=== PATIENT | male | born 1985 | race Two or more races ===

== ENCOUNTER 2020-10-07 12:50 | Inpatient (IN) | payer OTHER ==
[~2020-10-07] VITALS: Ht 157.5 cm; Wt 65.8 kg
--- NOTE | 2020-10-07 13:01 | NUR ---
PT TAKEN FROM TRIAGE TO ROOM 41, PLACED ON O2, EKG PERFORMED IN ROOM.
--- NOTE | 2020-10-07 13:20 | NUR ---
PT IN GOWN IN [facility]. PT ATTACHED TO ALL VS AND CARDIAC MONITORS. DR ROE AT FOR PT HISTORY AND ASSESSMENT. PT AND SPOUSE EDUCATED ON ER PROCESS AND POC AND VERBALIZE UNDERSTANDING. CALL LIGHT IS WITHIN REACH.
[2020-10-07] MEDS ORDERED: DEXAMETHASONE 4 MG/ML, 5ML ONE (13:22)
[2020-10-07] MEDS ORDERED: DOXYCYCLINE 100MG TABLET ONE (13:22)
[2020-10-07] MEDS ORDERED: CEFTRIAXONE 1,000 MG in DEXTROSE 5% 50 ML IVPB ONE (13:30)
[2020-10-07] MEDS ORDERED: DEXAMETHASONE 4 MG/ML, 1ML IV ONE (13:30)
[2020-10-07] MEDS ORDERED: DOXYCYCLINE 100MG TABLET PO ONE (13:30)
--- NOTE | 2020-10-07 13:31 | NUR ---
SARA AT BS.
--- NOTE | 2020-10-07 13:43 | NUR ---
PIV ACCESS ESTABLISHED. LABS AND BC X 1 COLLECTED AT THIS TIME. PT MEDICATED PER MAR.
[2020-10-07 14:11] LABS: BASOPHILS % (AUTO) 0 % (0-1); EOSINOPHILS % (AUTO) 0 % (1-7); LYMPHOCYTES % (AUTO) 23 % (22-44); MEAN CORPUSCULAR HEMOGLOBIN 30.6 pg (27.5-34.5); MEAN PLATELET VOLUME 7.9 fL (7.4-10.4); MONOCYTES % (AUTO) 8 % (2-9); NEUTROPHILS % (AUTO) 68 % (42-75); PLATELET COUNT 401 x10^3/uL (130-400); RED BLOOD COUNT 5.22 x10^6/uL (4.38-5.82); RED CELL DISTRIBUTION WIDTH 13.8 % (9.4-14.8)
[2020-10-07 14:21] LABS: ALANINE AMINOTRANSFERASE 136 U/L (12-78); ALBUMIN 2.6 g/dL (3.4-5.0); ANION GAP 6 mmol/L (5-15); CALCIUM 8.5 mg/dL (8.5-10.1); CHLORIDE 104 mmol/L (98-107); CREATININE 0.78 mg/dL (0.7-1.3)
[2020-10-07 14:27] LABS: ALKALINE PHOSPHATASE 108 U/L (45-117); BILIRUBIN,TOTAL 0.5 mg/dL (0.2-1.0); TOTAL PROTEIN 7.1 g/dL (6.4-8.2)
[2020-10-07 14:33] LABS: D-DIMER (DIC) 0.53 ug/mlFEU (0.00-0.52); PROTIME 10.9 Seconds (9.6-11.5)
[2020-10-07] MEDS ORDERED: POLYETHYLENE GLYCOL 17 GM PACKET PO PRN (15:00)
[2020-10-07] MEDS ORDERED: REMDESIVIR 200 MG in SODIUM CHLORIDE 0.9% 250 ML IVPB ONE (15:00)
[2020-10-07] MEDS ORDERED: TRAZODONE 50MG TABLET PO PRN (15:00)
[2020-10-07] MEDS ORDERED: ONDANSETRON 2MG/ML, 2ML IVPush PRN (15:00)
[2020-10-07] MEDS ORDERED: MELATONIN 5 MG TABLET PO PRN (15:00)
[2020-10-07] MEDS ORDERED: ACETAMINOPHEN 325 MG TABLET PO PRN (15:00)
[2020-10-07] MEDS ORDERED: IBUPROFEN 600 MG TABLET PO PRN (15:00)
--- NOTE | 2020-10-07 15:30 | NUR ---
PT MEDICATED WITH REMDESIVIR IV. INFUSION PARAMETERS PER MAY. PT TOLERATING WELL AT THIS TIME. VSS AND UPDATED IN EMR.
--- NOTE | 2020-10-07 15:45 | NUR ---
TASK RN: TO CT SCAN FOR CTA THEN TRANPORTED TO INPATIENT BED
[2020-10-07] MEDS ORDERED: OMNIPAQUE 350 MG/ML, 100ML BOTTLE ONE (16:06)
[2020-10-07] MEDS: ENOXAPARIN 40 MG/0.4 ML SQ SCH (17:09)
[2020-10-07] MEDS: ASCORBIC ACID 500 MG TABLET PO SCH (17:09)
[2020-10-07 20:26] VITALS: BP 111/77
[2020-10-08 02:15] VITALS: BP 122/80
[2020-10-08 05:57] LABS: BASOPHILS % (AUTO) 0 % (0-1); EOSINOPHILS % (AUTO) 0 % (1-7); LYMPHOCYTES % (AUTO) 19 % (22-44); MEAN CORPUSCULAR HEMOGLOBIN 30.7 pg (27.5-34.5); MEAN CORPUSCULAR HGB CONC 34.2 g/dL (33.2-36.2); MEAN PLATELET VOLUME 7.7 fL (7.4-10.4); MONOCYTES % (AUTO) 7 % (2-9); NEUTROPHILS % (AUTO) 74 % (42-75); PLATELET COUNT 434 x10^3/uL (130-400); RED BLOOD COUNT 5.36 x10^6/uL (4.38-5.82); RED CELL DISTRIBUTION WIDTH 13.8 % (9.4-14.8)
[2020-10-08] MEDS: ZINC SULFATE 220 MG CAPSULE PO SCH (08:13)
[2020-10-08] MEDS: ASCORBIC ACID 500 MG TABLET PO SCH ×2 (08:13→15:47)
[2020-10-08] MEDS: DEXAMETHASONE 4 MG/ML, 1ML IVPush SCH (08:14)
[2020-10-08] MEDS: CHOLECALCIFEROL 1,000 UNIT TABLET PO SCH (08:14)
[2020-10-08] MEDS: SENNA/DOCUSATE TABLET PO SCH (08:14)
[2020-10-08 08:21] VITALS: BP 109/74
[2020-10-08 13:35] VITALS: BP 112/76
[2020-10-08] MEDS: REMDESIVIR 100 MG in SODIUM CHLORIDE 0.9% 250 ML IVPB SCH (15:47)
[2020-10-08] MEDS: ENOXAPARIN 40 MG/0.4 ML SQ SCH (15:47)
[2020-10-08 20:15] VITALS: BP 109/70
[2020-10-09 01:03] VITALS: BP 108/70
[2020-10-09 06:02] LABS: CHLORIDE 107 mmol/L (98-107)
[2020-10-09 06:09] LABS: ALANINE AMINOTRANSFERASE 130 U/L (12-78); ALBUMIN 2.6 g/dL (3.4-5.0); ALKALINE PHOSPHATASE 98 U/L (45-117); ANION GAP 2 mmol/L (5-15); BILIRUBIN,TOTAL 0.5 mg/dL (0.2-1.0); CALCIUM 8.9 mg/dL (8.5-10.1); CREATININE 0.74 mg/dL (0.7-1.3); TOTAL PROTEIN 6.5 g/dL (6.4-8.2)
[2020-10-09] MEDS: SENNA/DOCUSATE TABLET PO SCH (08:13)
[2020-10-09] MEDS: ASCORBIC ACID 500 MG TABLET PO SCH ×2 (08:14→15:40)
[2020-10-09] MEDS: ZINC SULFATE 220 MG CAPSULE PO SCH (08:14)
[2020-10-09] MEDS: CHOLECALCIFEROL 1,000 UNIT TABLET PO SCH (08:14)
[2020-10-09] MEDS: DEXAMETHASONE 4 MG/ML, 1ML IVPush SCH (08:14)
[2020-10-09 09:25] VITALS: BP 98/58
[2020-10-09 12:45] VITALS: BP 117/75
[2020-10-09] MEDS: REMDESIVIR 100 MG in SODIUM CHLORIDE 0.9% 250 ML IVPB SCH (15:33)
[2020-10-09] MEDS: ENOXAPARIN 40 MG/0.4 ML SQ SCH (15:40)
[2020-10-09 21:59] VITALS: BP 124/55
[2020-10-09 22:06] VITALS: BP 124/55
[2020-10-10 01:46] VITALS: BP 106/63
[2020-10-10 04:56] LABS: ALBUMIN 2.5 g/dL (3.4-5.0); ANION GAP 2 mmol/L (5-15); CALCIUM 8.3 mg/dL (8.5-10.1); CHLORIDE 108 mmol/L (98-107)
[2020-10-10 05:00] LABS: ALANINE AMINOTRANSFERASE 126 U/L (12-78); ALKALINE PHOSPHATASE 84 U/L (45-117); BILIRUBIN,TOTAL 0.4 mg/dL (0.2-1.0); CREATININE 0.66 mg/dL (0.7-1.3); TOTAL PROTEIN 6.2 g/dL (6.4-8.2)
[2020-10-10 09:00] VITALS: BP 104/73
[2020-10-10] MEDS: SENNA/DOCUSATE TABLET PO SCH (09:00)
[2020-10-10] MEDS: CHOLECALCIFEROL 1,000 UNIT TABLET PO SCH (10:10)
[2020-10-10] MEDS: ZINC SULFATE 220 MG CAPSULE PO SCH (10:10)
[2020-10-10] MEDS: DEXAMETHASONE 4 MG/ML, 1ML IVPush SCH (10:10)
[2020-10-10] MEDS: ASCORBIC ACID 500 MG TABLET PO SCH ×2 (10:10→15:32)
[2020-10-10 12:46] VITALS: BP 97/66
[2020-10-10] MEDS: ENOXAPARIN 40 MG/0.4 ML SQ SCH (15:32)
[2020-10-10] MEDS: REMDESIVIR 100 MG in SODIUM CHLORIDE 0.9% 250 ML IVPB SCH (15:32)
[2020-10-10 20:00] VITALS: BP 119/76
[2020-10-11 00:41] VITALS: BP 91/57
[2020-10-11 06:48] LABS: ALANINE AMINOTRANSFERASE 228 U/L (12-78); ALBUMIN 2.5 g/dL (3.4-5.0); ANION GAP 3 mmol/L (5-15); CALCIUM 8.2 mg/dL (8.5-10.1); CHLORIDE 110 mmol/L (98-107); CREATININE 0.67 mg/dL (0.7-1.3)
[2020-10-11 06:50] LABS: ALKALINE PHOSPHATASE 81 U/L (45-117); BILIRUBIN,TOTAL 0.4 mg/dL (0.2-1.0); TOTAL PROTEIN 5.9 g/dL (6.4-8.2)
[2020-10-11 08:51] VITALS: BP 101/64
[2020-10-11] MEDS: SENNA/DOCUSATE TABLET PO SCH (09:00)
[2020-10-11] MEDS: CHOLECALCIFEROL 1,000 UNIT TABLET PO SCH (09:32)
[2020-10-11] MEDS: ZINC SULFATE 220 MG CAPSULE PO SCH (09:32)
[2020-10-11] MEDS: DEXAMETHASONE 4 MG/ML, 1ML IVPush SCH (09:32)
[2020-10-11] MEDS: ASCORBIC ACID 500 MG TABLET PO SCH ×2 (09:32→16:30)
[2020-10-11 13:15] VITALS: BP 118/73
[2020-10-11] MEDS: ENOXAPARIN 40 MG/0.4 ML SQ SCH (15:14)
[2020-10-11] MEDS: REMDESIVIR 100 MG in SODIUM CHLORIDE 0.9% 250 ML IVPB SCH (15:14)
[2020-10-11 18:36] VITALS: BP 114/68
[2020-10-12 02:25] VITALS: BP 105/65
[2020-10-12 08:39] VITALS: BP 109/79
[2020-10-12] MEDS: ZINC SULFATE 220 MG CAPSULE PO SCH (08:47)
[2020-10-12] MEDS: ASCORBIC ACID 500 MG TABLET PO SCH (08:47)
[2020-10-12] MEDS: CHOLECALCIFEROL 1,000 UNIT TABLET PO SCH (08:47)
[2020-10-12] MEDS: SENNA/DOCUSATE TABLET PO SCH (08:48)
[2020-10-12] MEDS: DEXAMETHASONE 4 MG/ML, 1ML IVPush SCH (08:48)
[2020-10-12 09:13] LABS: CALCIUM 8.9 mg/dL (8.5-10.1); CHLORIDE 106 mmol/L (98-107)
[2020-10-12 10:02] LABS: ALANINE AMINOTRANSFERASE 246 U/L (12-78); ALKALINE PHOSPHATASE 85 U/L (45-117); ANION GAP 4 mmol/L (5-15); BILIRUBIN,TOTAL 0.5 mg/dL (0.2-1.0); CREATININE 0.72 mg/dL (0.7-1.3); TOTAL PROTEIN 7.1 g/dL (6.4-8.2)
[2020-10-12] MEDS ORDERED: ASCO500T9 PO (12:37)
== END 2020-10-12 15:30 | disposition home or self-care (01) | DRG 177 ==
LOC: ED 13:31 → EDIP 14:30 → SUATTDRO 14:36 → 4WST 15:54
PROVIDERS: ADMIT Hospitalist; ATTEND Internal Medicine
PROC: XW033E5 Introduction of Remdesivir Anti-infective into Peripheral Vein, Percutaneous Approach, New Technology Group 5 (ICD-10-PCS; principal; 2020-10-07)
DX: U07.1 COVID-19 (principal); J12.82 Pneumonia due to coronavirus disease 2019; J96.01 Acute respiratory failure with hypoxia; R79.89 Other specified abnormal findings of blood chemistry
CPT/HCPCS: 36415; 71045; 71275; 76700; 80053; 82728; 83605; 83615; 84145; 85025; 85049; 85379; 85384; 85610; 85730; 86140; 87040; 93005; 96365; 96375; G0378; J0696; J1100; J1650; Q9967; J7050